=== PATIENT | male | born 1970 | race Caucasian/White ===

== ENCOUNTER 2017-11-16 13:47 | Emergency (ER) | payer OTHER ==
[2017-11-16 14:46] VITALS: BP 142/103
--- NOTE | 2017-11-16 15:02 | UC ---
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 Pt states it feels irritated and swelling w/ mild pain when he swallows. He feels it is worsen since yesterday. He usually works w/ this chemical, but this time he forgot to wear his mask. He has felt mild chills and SOB since yesterday. Pain is 2/10 w/ swallowing. Pt denies fever, dizziness, NICOLE, cough, throat tightening,difficulty breathing, abdominal pain, N /V/D. - History of Current Complaint Chief Complaint: UCGeneralIllness Stated Complaint: SORE THROAT Time Seen by Provider: 11/16/17 14:34 Hx Obtained From: Patient Onset/Duration: Gradual Onset, Lasting Days - 6 days, Still Present Severity: Mild Pain Intensity: 2 Pain Scale Used: 0-10 Numeric Cough: None Associated Signs & Symptoms: Positive: Dysphagia, Other - swelling w/ chills. Negative: Drooling, Wheezing, Hoarseness, Sinus Discomfort, Nasal Discharge, Rash - Epiglottits Risk Factors Epiglottis Risk Factors: Negative - Allergies/Home Medications Allergies/Adverse Reactions: Allergies Allergy/AdvReac Type Severity Reaction Status Date / Time No Known Allergies Allergy Verified 11/16/17 14:27 PMH/Surg Hx/FS Hx/Imm Hx Previously Healthy: Yes Respiratory History: Asthma - as a child - Surgical History Surgical History: Yes Surgery Procedure, Year, and Place: LEFT HUMERUS SURGERY AND CLAVICLE 1O YEARS AGO - Family History Known Family History: Positive: Hypertension, Diabetes - Social History Occupation: Employed Full-time Lives: With Family Alcohol Use: Weekly Substance Use Type: None Smoking Status (MU): Never Smoked Tobacco Review of Systems Constitutional: Chills, Other - sweats Skin: Negative Eyes: Negative ENT: Sore Throat - throat swelling and irritated Respiratory: Negative Cardiovascular: Negative Gastrointestinal: Negative Genitourinary: Negative Motor: Negative Neurovascular: Negative Musculoskeletal: Negative Neurological: Negative Psychological: Negative Is Patient Immunocompromised?: No All Other Systems Reviewed And Are Negative: Yes Physical Exam - Summary Physical Exam Summary: VITAL SIGNS: Reviewed. GENERAL: Patient is a well developed and nourished male who is sitting comfortable in the examining table. Patient is not in any acute respiratory distress. HEAD AND FACE: No signs of trauma. No ecchymosis, hematomas or skull depressions. No sinus tenderness. EYES: PERRLA, EOMI x 2, No injected conjunctiva, no nystagmus. No photophobia. EARS: Hearing grossly intact. Ear canals and tympanic membranes are within normal limits. MOUTH: Positive pharynx with mild erythema, no exudates, mild palatal petechiae. No B/L tonsillar enlargement . Uvula in midline enlarge and elongated w/ some erythematous papules. NECK: Supple, trachea is midline, Positive anterior cervical lymphadenopathy, no JVD, no carotid bruit, no c-spine tenderness, neck with full ROM. No meningeal signs, no Kernig's or brudzinskis signs. CHEST: Symmetric, no tenderness at palpation LUNGS: Clear to auscultation bilaterally. No wheezing or crackles. CVS: Regular rate and rhythm, S1 and S2 present, no murmurs or gallops appreciated. ABDOMEN: Soft, non-tender. No signs of distention. No rebound no guarding, and no masses palpated. Bowel sounds are normal. EXTREMITIES: FROM in all major joints, no edema, no cyanosis or clubbing. NEURO: Alert and oriented x 3. No acute neurological deficits. Speech is normal and follows commands. 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 Pt states it feels irritated and swelling w/ mild pain when he swallows. He feels it is worsen since yesterday. He usually works w/ this chemical, but this time he forgot to wear his mask. He has felt mild chills and SOB since yesterday. Pain is 2/10 w/ swallowing. Pt denies fever, dizziness, NICOLE, cough, throat tightening,difficulty breathing, abdominal pain, N/V/D. Hx obtained. Pt is febrile w/ uvulitis and pharyngitis on examination. Pt Rx Prednisone taper dose, Augmentin and ibuprofen PO for pain and swelling. PT Advised on hand washing to avoid spreading. Also advised to rest, eat well and avoid strenuous exercise. If symptoms do not improve or worsen advised to return to the urgent care or f/u with a PCP from the [facility] network for further evaluation and treatment. Pt's BP is elevated today advised to decrease salt in diet, monitor BP and f/u with PCP for further management. 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 PT understood and agreed w/ plan of care. - Differential Dx/Diagnosis Differential Diagnosis/HQI/PQRI: Laryngitis, Mononucleosis, Pharyngitis, Tonsillitis, URI, Other - uvulitis Provider Diagnoses: 1- Pharyngitis. 2- Uvulitis. 3- Elevated BP w/o Hx of HTN Discharge - Sign-Out/Discharge Documenting (check all that apply): Discharge/Admit/Transfer - D/C home - Discharge Plan Condition: Stable Disposition: HOME Prescriptions: Amoxicillin/Clavulanate TAB* [Augmentin TAB 875*] 875 mg PO BID #20 tab Ibuprofen TAB* [Motrin TAB* 600 MG] 600 mg PO Q6H PRN #20 tab PRN Reason: Sore Throat predniSONE TAB* [Deltasone TAB*] 20 mg PO DAILY #11 tab Patient Education Materials: Pharyngitis (ED), Uvulitis (ED), Low-Sodium Diet ( ED) Print Language: URDU Referrals: [facility] PHYSICIAN REFERRAL [Outside] - 3 Days Additional Instructions: 1- Por favor tome todo el antibiotic para evitar resistencia. Por favor tome Prednisone PO para la inflamacion, irritacion . 2-Por favor tome Ibuprofen PO q6-8hrs prn despues de las comidas para aliviar el dolor y la inflamacion. Por favor descanse y incremente liquidos para hydratarse. Evite ejercicios estenuantes. 3-Si los simptomas no mejoran por favor ju[facility] con Un [facility]ico primario del [facility] network para q lo evaluen y traten. 4-Castillo Presion esta un poco marisa, por favor baje a la [place], y monitore castillo presion arteial y si continua elevada for favor pilo castillo Medico primario en 1 semana. - Billing Disposition and Condition Condition: STABLE Disposition: HOME
== END 2017-11-16 15:42 | disposition home or self-care (01) ==
LOC: UCEAST 13:47
DX: J02.9 Acute pharyngitis, unspecified (principal); K12.2 Cellulitis and abscess of mouth; R03.0 Elevated blood-pressure reading, without diagnosis of hypertension; J45.909 Unspecified asthma, uncomplicated
CPT/HCPCS: 99202; G0463